=== PATIENT | female | born 1980 | race Caucasian/White ===

== ENCOUNTER 2020-08-21 13:41 | Inpatient (IN) | payer MEDICAID ==
[~2020-08-21] VITALS: Ht 160 cm; Wt 75.3 kg
[2020-08-21] MEDS ORDERED: ACETAMINOPHEN 325MG TABLET PO STA (13:44)
[2020-08-21] MEDS ORDERED: DEXAMETHASONE 4MG/ML 1ML VIAL IV ONE (13:45)
[2020-08-21] MEDS ORDERED: CEFTRIAXONE 1 G PREMIX 50 ML IV ONE (13:45)
[2020-08-21] MEDS ORDERED: AZITHROMYCIN 500 MG in DEXT 5% WATER 250 ML IV ONE (13:45)
[2020-08-21] MEDS ORDERED: SODIUM CHLORIDE 0.9% 1000ML BAG (SEPSIS BOLUS) IV ONE (13:45)
[2020-08-21 15:07] LABS: D-DIMER 0.48 mg/L FEU (<0.50); PROTHROMBIN TIME 10.7 sec (9.6-11.0)
[2020-08-21 15:18] LABS: HEMATOCRIT. 41.3 % (36.0-48.0); HEMOGLOBIN. 13.8 g/dL (12.0-16.0); MEAN CORPUSCULAR VOLUME 89.8 fL (81.0-99.0); MEAN PLATELET VOLUME 9.4 fl (7.4-10.4); PLATELET 182 x1000/uL (130-400); RED CELL DISTRIBUTION WIDTH 13.3 % (11.6-14.6)
[2020-08-21 15:22] LABS: CHLORIDE 108 mEq/L (98-107)
[2020-08-21 15:30] LABS: CREATINE KINASE 52 IU/L (26-192)
[2020-08-21 15:38] LABS: HCG SCREEN NEGATIVE
[2020-08-21 15:46] LABS: PLATELET ESTIMATE NORMAL
[2020-08-21 18:45] LABS: CLARITY URINE CLOUDY (CLEAR); COLOR URINE ORANGE (YELLOW); KETONES URINE NEGATIVE (NEGATIVE); LEUKOCYTE ESTERASE URINE TRACE (NEGATIVE); NITRITE URINE NEGATIVE (NEGATIVE); OCCULT BLOOD URINE 3+ (NEGATIVE); PROTEIN URINE 1+ (NEGATIVE); SPECIFIC GRAVITY URINE 1.013 (1.005-1.030); UROBILINOGEN URINE 0.2 E.U./dL (0.2-1.0)
[2020-08-21] MEDS ORDERED: ONDANSETRON HCL 4MG/2ML INJ IV PRN (23:15)
[2020-08-21] MEDS: CEFTRIAXONE 1 G PREMIX 50 ML IV SCH (23:45)
[2020-08-21] MEDS: ENOXAPARIN 40MG/0.4ML SYR SUBCUT SCH (23:45)
[2020-08-22] MEDS: AZITHROMYCIN 250 MG TABLET PO SCH (08:47)
[2020-08-22] MEDS: DEXAMETHASONE 4MG TABLET PO SCH (08:47)
[2020-08-22 14:11] LABS: BG BASE EXCESS 0.2 mmol/L (-2.0-2.0); BG CARBOXYHEMOGLOBIN 0.6 % (0.5-1.5); BG DEOXYHEMOGLOBIN 11.4 % (0.0-5.0); BG FRACTION INSPIRED OXYGEN 21; BG METHEMOGLOBIN 0.3 % (0.0-1.5); BG OXYGEN SATURATION 88.5 % (92.0-98.5); BG OXYHEMOGLOBIN 87.7 % (94.0-97.0); BG PCO2 36.5 mmHg (35.0-45.0); BG PH 7.436 (7.350-7.450); BG PO2 52.1 mmHg (75.0-100.0); BG SAMPLE SITE RIGHT RADIAL; BG VENT MODE ROOM AIR
[2020-08-22 21:58] LABS: HEMATOCRIT. 41.5 % (36.0-48.0); HEMOGLOBIN. 13.7 g/dL (12.0-16.0); MEAN CORPUSCULAR HEMOGLOBIN 29.4 pg (28.0-32.0); MEAN CORPUSCULAR VOLUME 89.1 fL (81.0-99.0); MEAN PLATELET VOLUME 8.4 fl (7.4-10.4); PLATELET 298 x1000/uL (130-400); RED BLOOD CELL COUNT 4.65 mill/uL (4.2-5.4); RED CELL DISTRIBUTION WIDTH 13.6 % (11.6-14.6)
[2020-08-22 22:02] LABS: CHLORIDE 111 mEq/L (98-107)
[2020-08-22 22:26] LABS: PLATELET ESTIMATE NORMAL
[2020-08-23] MEDS: CEFTRIAXONE 1 G PREMIX 50 ML IV SCH (03:00)
[2020-08-23] MEDS: BENZONATATE 100MG CAPSULE PO PRN (03:26)
[2020-08-23] MEDS: DEXAMETHASONE 4MG TABLET PO SCH (09:00)
[2020-08-23] MEDS: AZITHROMYCIN 250 MG TABLET PO SCH (09:00)
[2020-08-23 15:16] VITALS: BP 113/71
[2020-08-23 16:00] VITALS: BP 113/71
[2020-08-23] MEDS ORDERED: PNEUMOCOCCAL 23-VAL P-SAC VAC 0.5 ML IM ONE (18:00)
[2020-08-23] MEDS ORDERED: INFLUENZA VACCINE 05/PF 0.5 ML VIAL IM ONE (18:00)
[2020-08-23 20:00] VITALS: BP 97/68
[2020-08-23] MEDS: ENOXAPARIN 40MG/0.4ML SYR SUBCUT SCH (22:45)
[2020-08-23] MEDS: CEFTRIAXONE 1,000 MG in DEXTROSE 5% WATER 50 ML IV SCH (22:56)
[2020-08-24] VITALS: BP 101/62
[2020-08-24 02:00] VITALS: BP 110/69
[2020-08-24] MEDS: ACETAMINOPHEN 325MG TABLET PO PRN (06:52)
[2020-08-24 08:00] VITALS: BP 110/71
[2020-08-24] MEDS ORDERED: LIDOCAINE HCL/PF 1% 2ML VIAL ONE (09:00)
[2020-08-24] MEDS: AZITHROMYCIN 250 MG TABLET PO SCH (10:05)
[2020-08-24] MEDS: DEXAMETHASONE 4MG TABLET PO SCH (10:05)
[2020-08-24] MEDS: BENZONATATE 100MG CAPSULE PO PRN (10:05)
[2020-08-24 12:00] VITALS: BP 110/70
[2020-08-24 12:33] LABS: BG BASE EXCESS -2.8 mmol/L (-2.0-2.0); BG CARBOXYHEMOGLOBIN 0.2 % (0.5-1.5); BG DEOXYHEMOGLOBIN 2.9 % (0.0-5.0); BG METHEMOGLOBIN 0.2 % (0.0-1.5); BG OXYGEN SATURATION 97.1 % (92.0-98.5); BG OXYHEMOGLOBIN 96.7 % (94.0-97.0); BG PCO2 33.6 mmHg (35.0-45.0); BG PH 7.413 (7.350-7.450); BG PO2 94.3 mmHg (75.0-100.0); BG SAMPLE SITE RIGHT BRACHIAL; BG TOTAL HEMOGLOBIN 14.1 g/dL (12.0-18.0); BG VENT MODE NASAL CANNULA
[2020-08-24 16:00] VITALS: BP 111/75
[2020-08-24 20:00] VITALS: BP 114/76
[2020-08-24] MEDS: CEFTRIAXONE 1,000 MG in DEXTROSE 5% WATER 50 ML IV SCH (21:06)
[2020-08-25] VITALS: BP 116/71
[2020-08-25 04:00] VITALS: BP 107/64
[2020-08-25 08:00] VITALS: BP 117/76
[2020-08-25] MEDS: BENZONATATE 100MG CAPSULE PO PRN (09:10)
[2020-08-25] MEDS: AZITHROMYCIN 250 MG TABLET PO SCH (09:10)
[2020-08-25] MEDS: DEXAMETHASONE 4MG TABLET PO SCH (09:11)
[2020-08-25 12:00] VITALS: BP 110/75
[2020-08-25 16:00] VITALS: BP 99/57
[2020-08-25] MEDS: CEFTRIAXONE 1,000 MG in DEXTROSE 5% WATER 50 ML IV SCH (23:13)
[2020-08-25] MEDS: ENOXAPARIN 40MG/0.4ML SYR SUBCUT SCH ×2 (23:14)
[2020-08-25] MEDS: ACETAMINOPHEN 325MG TABLET PO PRN (23:15)
[2020-08-26] MEDS: BENZONATATE 100MG CAPSULE PO PRN (01:10)
[2020-08-26 04:00] VITALS: BP 115/73
[2020-08-26 08:00] VITALS: BP 101/66
[2020-08-26] MEDS: AZITHROMYCIN 250 MG TABLET PO SCH (09:26)
[2020-08-26] MEDS: DEXAMETHASONE 4MG TABLET PO SCH (09:27)
[2020-08-26 12:24] VITALS: BP 102/66
[2020-08-26 15:44] VITALS: BP 107/70
[2020-08-26 20:00] VITALS: BP 99/69
[2020-08-26] MEDS: CEFTRIAXONE 1,000 MG in DEXTROSE 5% WATER 50 ML IV SCH (22:02)
[2020-08-26] MEDS: ACETAMINOPHEN 325MG TABLET PO PRN (22:02)
[2020-08-26] MEDS: ENOXAPARIN 40MG/0.4ML SYR SUBCUT SCH (22:03)
[2020-08-27 04:00] VITALS: BP 109/71
[2020-08-27 08:00] VITALS: BP 102/57
[2020-08-27] MEDS: AZITHROMYCIN 250 MG TABLET PO SCH (08:53)
[2020-08-27] MEDS: DEXAMETHASONE 4MG TABLET PO SCH (08:53)
[2020-08-27] MEDS: BENZONATATE 100MG CAPSULE PO PRN ×2 (08:54→23:53)
[2020-08-27 12:00] VITALS: BP 106/70
[2020-08-27 16:00] VITALS: BP 103/68
[2020-08-27 20:00] VITALS: BP 156/68
[2020-08-27 22:30] VITALS: BP 113/65
[2020-08-27] MEDS: ENOXAPARIN 40MG/0.4ML SYR SUBCUT SCH (23:53)
[2020-08-28] VITALS: BP 100/55
[2020-08-28 04:00] VITALS: BP 98/57
[2020-08-28] MEDS: DEXAMETHASONE 4MG TABLET PO SCH (09:01)
[2020-08-28 12:00] VITALS: BP 108/70
[2020-08-28 16:00] VITALS: BP 108/64
[2020-08-28] MEDS ORDERED: BENZ100C86 PO (16:38)
[2020-08-28 20:38] VITALS: BP 97/59
[2020-08-28] MEDS: ACETAMINOPHEN 325MG TABLET PO PRN (21:24)
[2020-08-28] MEDS: ENOXAPARIN 40MG/0.4ML SYR SUBCUT SCH (22:56)
[2020-08-29] VITALS: BP 99/62
[2020-08-29 04:00] VITALS: BP 94/53
[2020-08-29 08:00] VITALS: BP 102/68
[2020-08-29] MEDS: BENZONATATE 100MG CAPSULE PO PRN ×2 (08:50→17:34)
[2020-08-29] MEDS: DEXAMETHASONE 4MG TABLET PO SCH (08:50)
[2020-08-29 12:00] VITALS: BP 90/60
[2020-08-29] MEDS ORDERED: ALBU6.7H11 INH (13:51)
[2020-08-29 16:00] VITALS: BP 90/54
[2020-08-29 19:02] VITALS: BP 90/54
== END 2020-08-29 20:30 | disposition home or self-care (01) | DRG 720 ==
LOC: ER 14:09 → EDBEDREQ 15:35 → EDBEDREQTM 15:35 → EDBEDREQSVC 15:35 → MICUSO 17:26 → EDBEDREQ 17:28 → EDBEDREQTM 17:29 → 7EST 08-23 14:02 → 6WST 08-25 19:58 → 6EST 08-26 23:45 → 6WST 08-27 22:35
PROVIDERS: ADMIT Internal Medicine; ATTEND Internal Medicine
DX: A41.89 Other specified sepsis (principal); U07.1 COVID-19; J96.01 Acute respiratory failure with hypoxia; E66.3 Overweight; E44.1 Mild protein-calorie malnutrition; E87.8 Other disorders of electrolyte and fluid balance, not elsewhere classified; R74.01 Elevation of levels of liver transaminase levels; R65.21 Severe sepsis with septic shock; Z68.29 Body mass index [BMI] 29.0-29.9, adult; J12.82 Pneumonia due to coronavirus disease 2019
CPT/HCPCS: 36415; 36600; 71045; 80048; 80053; 81003; 82375; 82550; 82728; 82805; 83605; 84145; 84484; 84703; 85025; 85379; 86140; 87426; 93005; 99291; C9803; J0456; J0696; J1100; J1650; J3490; J7030; J7060; J8540; U0003